=== PATIENT | female | born 1975 | race Hispanic/Latino ===

== ENCOUNTER 2024-06-03 18:02 | Emergency (ER) | payer MEDICAID, OTHER, SELFPAY ==
[2024-06-03 18:24] VITALS: BP 129/79; PULSE 89; RESP 18; TEMP 36.6; O2SAT 98; BMI 31.1
--- NOTE | 2024-06-03 19:35 | ED.DENTAL ---
HPI - Dental/Oral General Chief complaint: Dental/Oral Stated complaint: abcess tooth Time Seen by Provider: 06/03/24 18:47 Source: patient Mode of arrival: Ambulatory History of Present Illness HPI Narrative: 2 days of worsening R mandibular jaw pain. Known caries in that side. Saw a dentist last week with planned removal of problem tooth, however it was then decided by dentist that wisdom teeth needed removal first and the procedure was cancelled, with patient referred to . Patient taking tylenol for pain without relief. [facility] appointment not for at least 1 week. Patient reporting increasing pain and swelling R mandible Related Data Previous Rx's Medication Instructions Recorded amoxicillin 875 mg-potassium 1 tab PO Q12H #20 tabs 06/03/24 clavulanate 125 mg tablet hydrocodone 5 mg-acetaminophen 325 1 tab PO Q8H PRN pain #14 tabs 06/03/24 mg tablet Allergies Allergy/AdvReac Type Severity Reaction Status Date / Time No Known Drug Allergies Allergy Verified 06/03/24 18:24 Patient History Social History Smoking Status: Former smoker Smoking Status: Former smoker Substance Use Type: does not use Exam Initial Vital Signs Initial Vital Signs: Vital Signs Temperature 97.8 F 06/03/24 18:24 Pulse Rate 89 06/03/24 18:24 Respiratory Rate 18 06/03/24 18:24 Blood Pressure 129/79 06/03/24 18:24 Pulse Oximetry 98 06/03/24 18:24 Oxygen Delivery Method Room Air 06/03/24 18:24 Const: Awake, alert, in pain, nontoxic appearing ENT: Airway patent, mucous membranes moist, no trismus, no pooling of secretions. Dental brando R mandibular molar. Minimal amount of peridental swelling, no obvious abscess Skin: Warm, Dry, intact, no rashes Neuro: AO x3, CN II-XII grossly intact, moves all extremities Course Orders Ordered: Discontinued Medications Hydrocodone Bitart/Acetaminophen (Hydrocodone/Acet 5/325 Prepack) 1 bottle MISC DIRECTED ONE Stop: 06/03/24 19:38 Last Admin: 06/03/24 19:41 Dose: 1 bottle Documented By: ANNE Amoxicillin/Clavulanate Potassium (Amoxicillin/Clav 875/125 Mg) 1 tab PO NOW ONE Stop: 06/03/24 19:34 Last Admin: 06/03/24 19:40 Dose: 1 tab Documented By: GC Oxycodone HCl (Oxycodone Ir 5 Mg Tablet) 5 mg PO NOW ONE Stop: 06/03/24 19:34 Last Admin: 06/03/24 19:40 Dose: 5 mg Documented By: ANNE Vital Signs Vital signs: Vital Signs - 8 hr 06/03/24 18:24 Temperature 97.8 F Pulse Rate 89 Respiratory Rate 18 Blood Pressure 129/79 Pulse Oximetry 98 Oxygen Delivery Method Room Air MDM - Dental/Oral MDM Narrative Medical decision making narrative: Worsening dental pain and swelling, known infected molar, pending referral to for wisdom tooth removal. No obvious drainable fluid collection. No trismus or pooling of secretions. Patient is not currently on antibiotics. Augmentin sent to pharmacy of choice. Pain medications sent to pharmacy of choice. Patient counseled on the importance of dental follow up. Discharge Plan Departure Patient Disposition: Home Clinical Impression: Dental abscess Instructions: DI for Dental Pain Activity Restrictions/Additional Instructions: FINISH ALL OF YOUR ANTIBIOTICS PRESCRIBED. FOLLOW UP WITH YOUR DENTAL CLINIC INSTRUCTED. MAKE SURE TO TAKE NO MORE THAN 4000 MG OF TYLENOL DAILY. YOU MAY ALSO USE TOPICAL MEDICATIONS SUCH BENZOCAINE FOR DENTAL RELIEF. Prescriptions: New amoxicillin-pot clavulanate 875-125 mg tablet 1 tab PO Q12H Qty: 20 0RF hydrocodone-acetaminophen 5-325 mg tablet 1 tab PO Q8H PRN (Reason: pain) Qty: 14 0RF Stand Alone Forms: Patient Portal/API
[2024-06-03] MEDS: OXYCODONE IR 5 MG TABLET PO (19:40)
[2024-06-03] MEDS: AMOXICILLIN/CLAV 875/125 MG 1 TAB PO (19:40)
[2024-06-03] MEDS: HYDROCODONE/ACET 5/325 PREPACK 1 BOTTLE MISC (19:41)
== END 2024-06-03 19:48 | disposition home or self-care (01) ==
PROVIDERS: Emergency Provider Emergency Medicine
DX: K04.7 Periapical abscess without sinus (principal)
CPT/HCPCS: 99283